=== PATIENT | female | born 1945 | race Two or more races ===

== ENCOUNTER 2024-11-11 13:23 | Outpatient (RCR) | payer MEDICARE, SELFPAY ==
--- NOTE | 2024-11-11 14:47 | CTCCONSULT_ITS ---
[facility] [address] [place], [place] [address] Consultation Note Date: 11/11/2024 MR#: [id number] Name: ROSHAN MONTES DE OCA : 1945 Dx: C82.90 Follicular lymphoma, unspecified, unspecified site Referring physician. Bryce Gonsales MD Reason for consultation. Patient with follicular lymphoma status post Truxima weekly x 8 recommended for radiation and for residual disease noted on PET right submandibular area. History of Present Illness: Patient is an 79-year-old lady who felt a lump in her right jaw early last year. Fine-needle aspiration right submandibular mass 01/30/2024 reviewed by [employer] suspicious for malignant lymphoma cells.. Underwent excision 06/17/2024 reviewed by [employer], consistent with CD10 positive B-cell non-Hodgkin lymphoma. Yeah she is so most recent PET scan 07/19/2024 showing decrease in size of activity right submandibular area from 2.2 now measuring 1 cm in size. There were little or no involvement elsewhere. Bone marrow reportedly negative. . Patient received Truxima weekly x 8 between 09/09/2024 through 10/29/2024. Patient has a new PET scan pending next week according to patient. Patient now referred for radiation oncology consultation. Past Medical History: History of prior breast CA treated only with radiation following surgery hypertension hyperlipidemia Long COVID valley fever Meds. Multivitamins alprazolam simvastatin triamterene ondansetron calcium valsartan Allergies Keflex Social History: Patient retired lives in [place] grew up in the [facility] Review of Systems: Denies fever chills weight loss Physical Exam: General: Adequate nourished appearing lady in no acute distress HEENT: There is no palpable nodes in the neck area no oral lesions CV: Chest good auscultation heart regular rate and rhythm ABD: Soft no organomegaly or tenderness EXT: No signs clubbing or edema Assessment:1. Follicular lymphoma mostly low-grade completed Truxima x 8 on 10/29/2024. 2. Local radiation therapy to the right submandibular region clinically and radiographically involved, 2400 cGy in 12 fractions will be planned for patient. Shall review the new PET scan planned for next week. 3 Thank you very much for allowing me to evaluate and manage this patient. Cc: Bryce Gonsales MD Electronically signed by: Phani Yeung MD, DABR 11/11/2024 2:44 PM
--- NOTE | 2024-11-11 14:47 | CTCTXPLN_ITS ---
[facility] [address] [place], [place] [address] Physician Clinical Treatment Planning Note Date of Service: 11/11/2024 Name: ROSHAN MONTES DE OCA D.O.B.: 1945 The patient has agreed to proceed with Radiation therapy. Tests and supporting medical records were interpreted to assist in defining the tumor location and extent of disease. Further imaging will be necessary to contour and delineate the volume to which the XRT will be provided. A. Treatment Intent: Curative B. Modality: 6 MV C. Requested Technique: 3D D. Treatment Site: Right submandibular E. Critical structures to be contoured on plan: F. In order to accomplish this plan, I am ordering/Prescribing the followin. Simulations (s) will be performed to accomplish a reproducible treatment position, to determine optimal treatment portals/beam arrangements, to design beam modifying devices and verify treatment portals on patient prior to the commencement of Radiation Therapy. Head and neck 2. Devices; for immobilization and beam shaping: Aquaplast 3. CT Guidance for placement of XRT renae Scan area: 4. Portal images Frequency: 5. Invivo transit dose measurement once per week on all VMAT patients. 6. Special Physics Consult Requested for: 7. Other requests: G. Dose Objectives: Curative Electronically signed by: Phani Yeung M.D. 11/11/2024 2:45 PM
--- NOTE | 2024-11-11 14:49 | CTCTXPLNST_ITS ---
Radiation Oncology Treatment Planning Sheet Name: ROSHAN MONTES DE OCA MR#: [id number] : 1945 Dx: C82.90 Follicular lymphoma, unspecified, unspecified site Date of Service: 11/11/2024 Account #: ?? Pt Treatment Intent: curative palliative other: Stage: Procedure CPT # Ordered Spec. Procedure 00008 Choi Complex (set-up) 09735 Head and neck 1 Choi Simple 30053 1 IMRT Plan 33643 MLC Devices VMAT 59569 Choi 3 D 70494 1 TRTMT dev Complex 03702 Aquaplast/ 2 renae 3 TRTMT dev simple 57228 Basic Marco Antonio 15887 2 Special Dosimetry 36840 Spec Physics 39704 Port Films 32861 3 SRS Cranial/1FX 04313 SBR 5 FX or Less /ex: 5 = 5 fx 83981 IMRT Simple 81730 IMRT Complex 68364 IGRT 60689 Rad del [employer] 6-10 61802 2400 12 MembraneX del [employer] 11 13012 Cont Med Physics 86380 2 Treatment Planning 01128 1 Weekly Evaluation 00948 2 Rad del [employer] 20 mev 47951 Special Port Plan 64577 TRTMT dev inter 12158 Isodose Complex 36745 Isodose simple 78579 Resp Motion Mgmt Simulation 77744 Placement of Fiducial Markers 75343 Electronically Signed By: Phani Yeung MD, GREGGR 11/11/2024 2:47 PM
== END 2024-11-17 23:59 | disposition home or self-care (01) ==
LOC: SCTC 13:23
PROVIDERS: PCP Internal Medicine; Referring Provider Internal Medicine Hematology & Oncology; Visit Provider Radiology Therapeutic Radiology
DX: C82.91 Follicular lymphoma, unspecified, lymph nodes of head, face, and neck (principal)
CPT/HCPCS: 99213; G0463

== ENCOUNTER 2024-12-18 11:54 | Outpatient (RCR) | payer MEDICARE, SELFPAY ==
--- NOTE | 2024-11-18 16:32 | CTCSNOTE_ITS ---
[facility] [address] [place], [place] [address] CT Simulation Note Date: 11/18/2024 MR# [id number] Name: ROSHAN MONTES DE OCA : 1945 (A) DIAGNOSIS: C82.90 Follicular lymphoma, unspecified, unspecified site (B) Patient was placed in supine position and used aquplast for immobilization purposes. (C) CT slices included head and neck (D) 3 D Will be needed for maximum sparing of adjacent normal critical structures. (E) Patient tolerated the simulation well and left the room in good condition. Electronically signed by: Phani Yeung MD, GREGGR 11/18/2024 4:30 PM
== END 2024-12-18 23:59 | disposition home or self-care (01) ==
LOC: SCTC 11:54
PROVIDERS: PCP Internal Medicine; Referring Provider Radiology Therapeutic Radiology; Visit Provider Radiology Therapeutic Radiology
DX: Z51.0 Encounter for antineoplastic radiation therapy (principal); C82.91 Follicular lymphoma, unspecified, lymph nodes of head, face, and neck; K12.33 Oral mucositis (ulcerative) due to radiation; Y84.2 Radiological procedure and radiotherapy as the cause of abnormal reaction of the patient, or of later complication, without mention of misadventure at the time of the procedure
CPT/HCPCS: 77014; 77280; 77290; 77295; 77300; 77334; 77336; 77402; 77417

== ENCOUNTER 2024-12-30 09:19 | Outpatient (RCR) | payer MEDICARE, SELFPAY ==
--- NOTE | 2024-12-30 09:58 | CTCTSUMM_ITS ---
[facility] [address] [place], [place] [address] Treatment Summary Date: 12/30/2024 MR#: [id number] Name: ROSHAN MONTES DE OCA : 1945 Dx: C82.90 Referring Physician: Bryce Gonsales MD (A) Diagnosis: [ICD10] C82.90 Follicular lymphoma, unspecified, unspecified site (B) Aim of Treatment: ??Curative (C) Concomitant Chemotherapy: Sequential (D) Radiation Dates: 11/25/2024 through 12/18/2024 Treatment Prescription R neck 2 FLD 6 MV PHOT 2,400 cGy 12 200 cGy Approved (E) All renae were treated using customized MLC Blocks (F) Finding at Discharge: Patient had predictable mucositis symptoms of the right oral cavity but this is largely healed when seen for first follow-up on 12/28/2024. (G) Discharge Instructions and F/U Appt was given: The patient was also advised to continue follow-up with and primary care physician: Cc: Bryce Gonsales MD Electronically signed by: Phani Yeung MD, DABR 12/30/2024 9:56 AM
== END 2025-01-17 23:59 | disposition home or self-care (01) ==
LOC: SCTC 09:19
PROVIDERS: PCP Internal Medicine; Referring Provider Internal Medicine; Visit Provider Radiology Therapeutic Radiology
DX: C82.91 Follicular lymphoma, unspecified, lymph nodes of head, face, and neck (principal)
CPT/HCPCS: 99212; G0463